=== PATIENT | male | born 2000 | race African-American/Black ===

== ENCOUNTER 2023-08-20 12:16 | Inpatient (IN) | payer OTHER ==
[~2023-08-20] VITALS: Ht 185.4 cm; Wt 105.6 kg
[2023-08-20] MEDS ORDERED: ACETAMINOPHEN 325 MG TABLET PO PRN (14:00)
[2023-08-20 20:00] VITALS: BP 126/61; PULSE 96; RESP 18; TEMP 98.4; O2SAT 100
[2023-08-20] MEDS: DOCUSATE SODIUM 100 MG CAPSULE PO SCH (21:15)
[2023-08-20] MEDS: MELATONIN 5 MG TABLET PO PRN (21:28)
[2023-08-20] MEDS ORDERED: ONDANSETRON HCL 4 MG TABLET PO PRN (21:45)
[2023-08-20] MEDS: ACETAMINOPHEN 325 MG TABLET PO SCH (21:51)
[2023-08-21] MEDS: OxyCODONE HCL 5 MG IR TABLET PO PRN (02:42)
[2023-08-21 04:58] VITALS: O2SAT 100
[2023-08-21 08:00] VITALS: BP 133/63; PULSE 86; RESP 18; TEMP 98.8; O2SAT 100
[2023-08-21 08:05] VITALS: PULSE 70
[2023-08-21 08:05] LABS: BASOPHILS % (AUTO) 0.5 % (0.0-2.0); EOSINOPHILS % (AUTO) 1.3 % (1.0-6.0); HEMATOCRIT 33.8 % (41-53); HEMOGLOBIN 11.1 g/dL (13.5-17.5); LYMPHOCYTES # (AUTO) 1.4 K/uL (1.0-4.8); LYMPHOCYTES % (AUTO) 11.9 % (22.0-44.0); MEAN CORPUSCULAR HEMOGLOBIN 29.8 pg (26.0-34.0); MEAN CORPUSCULAR HGB CONC 32.8 G/dL (31.0-37.0); MEAN CORPUSCULAR VOLUME 91 fL (80-100); MONOCYTES % (AUTO) 9.1 % (2.0-9.0); NEUTROPHILS # (AUTO) 8.8 K/uL (1.8-7.7); NEUTROPHILS % (AUTO) 77.2 % (40.0-70.0); PLATELET COUNT (AUTO) 576 K/uL (150-450); RED BLOOD CELL COUNT(AUTO) 3.72 MIL/uL (4.50-5.90); RED CELL DISTRIBUTION WIDTH 15.5 % (11.5-14.5); WHITE BLOOD COUNT (AUTO) 11.4 K/uL (4.5-11.0)
[2023-08-21 08:37] LABS: ALANINE AMINOTRANSFERASE 91 U/L (12-78); ALBUMIN 2.9 g/dL (3.4-5.0); ALKALINE PHOSPHATASE 75 U/L (46-116); ANION GAP 9 mmol/L (8-16); ASPARTATE AMINOTRANSFERASE 38 U/L (15-37); BILIRUBIN,TOTAL 0.7 mg/dL (0.1-1.0); CALCIUM, TOTAL 9.7 mg/dL (8.8-10.5); CARBON DIOXIDE 29 mmol/L (22-29); CHLORIDE 103 mmol/L (98-107); GLOMERULAR FILTR. RATE CALC > 60 mL/min (>60); GLUCOSE,RANDOM 90 mg/dL (70-110); POTASSIUM 4.1 mmol/L (3.5-5.1); SODIUM SERUM 141 mmol/L (136-145); TOTAL PROTEIN, SERUM 7.5 g/dL (6.4-8.2); UREA NITROGEN, BLOOD 20 mg/dL (7-18)
[2023-08-21] MEDS: PNEUMOCOCCAL VACCINE POLYVALENT 0.5 ML SYRINGE [PPSV23] IM. ONE (08:49)
[2023-08-21] MEDS: ETHYL ALCOHOL 62% ANTISEPTIC NASAL SANITIZER 0.6 ML AMPUL NASAL SCH (08:49)
[2023-08-21] MEDS: DILTIAZEM HCL CD 120 MG ER CAPSULE PO SCH (08:50)
[2023-08-21] MEDS: CELECOXIB 200 MG CAPSULE PO SCH (08:50)
[2023-08-21] MEDS: SENNOSIDES 8.6 MG TABLET PO SCH (08:51)
[2023-08-21] MEDS: METHOCARBAMOL 500 MG TABLET PO SCH (08:51)
[2023-08-21] MEDS: VALSARTAN 40 MG TABLET PO SCH (08:51)
[2023-08-21] MEDS: POLYETHYLENE GLYCOL 3350 17 GM PACKET PO SCH (08:51)
[2023-08-21] MEDS: GABAPENTIN 300 MG CAPSULE PO SCH (08:51)
[2023-08-21] MEDS: ENOXAPARIN SODIUM 40 MG/0.4 ML PF SYRINGE SQ SCH (08:52)
[2023-08-21] MEDS: DOXYCYCLINE HYCLATE 100 MG TABLET PO SCH (08:52)
[2023-08-21] MEDS: MAGNESIUM HYDROXIDE SUSPENSION 30 ML UDCUP PO SCH (09:00)
[2023-08-21 20:30] VITALS: BP 100/66; PULSE 87; RESP 18; TEMP 98.6; O2SAT 100
[2023-08-21 23:05] VITALS: O2SAT 100
[2023-08-22 00:39] VITALS: BP 119/57; PULSE 78; RESP 19; TEMP 99.5; O2SAT 100
[2023-08-22 08:00] VITALS: BP 124/64; PULSE 47; RESP 18; TEMP 99.8; O2SAT 99
[2023-08-22 09:00] VITALS: O2SAT 99
[2023-08-22 21:21] VITALS: BP 123/93; PULSE 70; RESP 18; TEMP 98.4; O2SAT 99
[2023-08-22 22:37] VITALS: O2SAT 99
[2023-08-22 23:00] VITALS: BP 129/54; PULSE 80; RESP 18; TEMP 99.2; O2SAT 100
[2023-08-23 07:50] VITALS: BP 120/58; PULSE 42; RESP 18; TEMP 99; O2SAT 100
[2023-08-23 08:10] VITALS: O2SAT 100
[2023-08-23 09:15] VITALS: PULSE 46; O2SAT 98
[2023-08-23 10:35] LABS: ALANINE AMINOTRANSFERASE 70 U/L (12-78); ALBUMIN 3.2 g/dL (3.4-5.0); ALKALINE PHOSPHATASE 81 U/L (46-116); ANION GAP 7 mmol/L (8-16); ASPARTATE AMINOTRANSFERASE 29 U/L (15-37); BILIRUBIN,TOTAL 0.9 mg/dL (0.1-1.0); CALCIUM, TOTAL 9.7 mg/dL (8.8-10.5); CARBON DIOXIDE 29 mmol/L (22-29); CHLORIDE 104 mmol/L (98-107); CREATININE 1.12 mg/dL (0.60-1.30); GLOMERULAR FILTR. RATE CALC > 60 mL/min (>60); GLUCOSE,RANDOM 101 mg/dL (70-110); POTASSIUM 3.8 mmol/L (3.5-5.1); SODIUM SERUM 140 mmol/L (136-145); TOTAL PROTEIN, SERUM 7.8 g/dL (6.4-8.2); UREA NITROGEN, BLOOD 20 mg/dL (7-18)
[2023-08-23 10:36] LABS: BASOPHILS % (AUTO) 0.6 % (0.0-2.0); EOSINOPHILS % (AUTO) 1.5 % (1.0-6.0); HEMATOCRIT 36.5 % (41-53); HEMOGLOBIN 11.7 g/dL (13.5-17.5); LYMPHOCYTES # (AUTO) 1.2 K/uL (1.0-4.8); LYMPHOCYTES % (AUTO) 12.8 % (22.0-44.0); MEAN CORPUSCULAR HEMOGLOBIN 29.4 pg (26.0-34.0); MEAN CORPUSCULAR VOLUME 92 fL (80-100); MONOCYTES # (AUTO) 0.8 K/uL (0.1-1.0); MONOCYTES % (AUTO) 8.9 % (2.0-9.0); NEUTROPHILS # (AUTO) 6.9 K/uL (1.8-7.7); NEUTROPHILS % (AUTO) 76.2 % (40.0-70.0); PLATELET COUNT (AUTO) 602 K/uL (150-450); RED BLOOD CELL COUNT(AUTO) 3.97 MIL/uL (4.50-5.90); RED CELL DISTRIBUTION WIDTH 15.9 % (11.5-14.5); WHITE BLOOD COUNT (AUTO) 9.1 K/uL (4.5-11.0)
[2023-08-23 20:00] VITALS: BP 124/74; PULSE 78; RESP 18; TEMP 98.1; O2SAT 99
[2023-08-24 07:19] VITALS: BP 143/61; PULSE 80; RESP 18; TEMP 97.5; O2SAT 100
[2023-08-24 10:40] VITALS: BP 127/63; PULSE 79; RESP 18; TEMP 98.8; O2SAT 98
[2023-08-24 20:00] VITALS: BP 125/69; PULSE 69; RESP 18; TEMP 98.1; O2SAT 100
[2023-08-25 08:05] VITALS: BP 122/67; PULSE 52; RESP 20; TEMP 98.4; O2SAT 100
[2023-08-25] MEDS: DiphenhydrAMINE HCL 25 MG CAPSULE PO PRN (18:18)
[2023-08-25 20:00] VITALS: BP 111/51; PULSE 73; RESP 20; TEMP 99.1; O2SAT 98
[2023-08-26 04:22] VITALS: BP 131/60; PULSE 70; RESP 18; TEMP 98.1; O2SAT 100
== END 2023-08-26 07:00 | DRG 964 ==
LOC: 4E 19:00 → 2WR 08-23 15:40
PROVIDERS: ADMIT Physical Medicine & Rehabilitation; ATTEND Physical Medicine & Rehabilitation
DX: S32.592A Other specified fracture of left pubis, initial encounter for closed fracture (principal); E46 Unspecified protein-calorie malnutrition; S72.111A Displaced fracture of greater trochanter of right femur, initial encounter for closed fracture; S82.291A Other fracture of shaft of right tibia, initial encounter for closed fracture; S82.091B Other fracture of right patella, initial encounter for open fracture type I or II; M62.82 Rhabdomyolysis; S42.402A Unspecified fracture of lower end of left humerus, initial encounter for closed fracture; S32.491A Other specified fracture of right acetabulum, initial encounter for closed fracture; S82.491A Other fracture of shaft of right fibula, initial encounter for closed fracture; S01.81XA Laceration without foreign body of other part of head, initial encounter; S27.329A Contusion of lung, unspecified, initial encounter; D64.9 Anemia, unspecified; D72.829 Elevated white blood cell count, unspecified; R55 Syncope and collapse; R50.9 Fever, unspecified; D75.839 Thrombocytosis, unspecified; R74.01 Elevation of levels of liver transaminase levels; R07.9 Chest pain, unspecified; J45.909 Unspecified asthma, uncomplicated; G43.909 Migraine, unspecified, not intractable, without status migrainosus; M54.50 Low back pain, unspecified; S27.322A Contusion of lung, bilateral, initial encounter; R26.9 Unspecified abnormalities of gait and mobility; R74.8 Abnormal levels of other serum enzymes; Z74.09 Other reduced mobility; V89.2XXA Person injured in unspecified motor-vehicle accident, traffic, initial encounter; Y93.89 Activity, other specified; Y92.89 Other specified places as the place of occurrence of the external cause; Y99.8 Other external cause status; Z68.30 Body mass index [BMI] 30.0-30.9, adult
CPT/HCPCS: 80053; 85025; 87081; 92523; 93005; 93970; 97110; 97116; 97163; 97167; 97530; 97535; 99285; 99366; J1650; Q9967